=== PATIENT | female | born 1985 | race American Indian/Alaskan Native ===

== ENCOUNTER 2016-09-20 18:50 | Emergency (ER) | payer MEDICAID ==
[2016-09-20 19:01] VITALS: BP 137/91
--- NOTE | 2016-09-20 19:03 | Emergency Department Report ---
Chief Complaint: Headache Stated Complaint: POSSIBLE STROKE Time Seen by Provider: 09/20/16 18:57 - HPI History of Present Illness: PT c/o headache 2-3 months. PT states it became worse yesterday - ROS Review of Systems: + irregular period, iud recently removed + abd pain + cough + wheeze - Exam Vital Signs: Vital Signs 09/20/16 18:57 Temperature 97.6 F Pulse Rate 101 H Respiratory 16 Rate Blood Pressure 137/91 O2 Sat by Pulse 100 Oximetry Physical Exam: PT looks well, non toxic steady gait in triage no focal weakness gcs 15 MSE screening note: Focused history and physical exam performed. Due to findings the following was ordered: labs, xr, ct ED Disposition for MSE Condition: Stable
[2016-09-20 19:30] LABS: Basophils % (Auto) 0.4 % (0.0-1.8); Eosinophils % (Auto) 2.9 % (0.0-4.3); Hematocrit 35.2 % (30.3-42.9); Hemoglobin 11.8 gm/dl (10.1-14.3); Mean Corpuscular HGB Conc 34 % (30-34); Mean Corpuscular Hemoglobin 31 pg (28-32); Mean Corpuscular Volume 91 fl (79-97); Platelet Count 215 K/mm3 (140-440); Red Blood Count 3.88 M/mm3 (3.65-5.03); Red Cell Distribution Width 12.8 % (13.2-15.2); White Blood Count 7.9 K/mm3 (4.5-11.0)
[2016-09-20 19:46] LABS: Alanine Aminotransferase 12 units/L (7-56); Albumin 3.9 g/dL (3.9-5); Albumin/Globulin Ratio 1.5 %; Alkaline Phosphatase 53 units/L (35-129); Anion Gap 16 mmol/L; Blood Urea Nitrogen 8 mg/dL (7-17); Calcium 8.7 mg/dL (8.4-10.2); Carbon Dioxide 26 mmol/L (22-30); Chloride 102.3 mmol/L (98-107); Glucose 102 mg/dL (65-100); Lipase 12 units/L (13-60); Sodium 140 mmol/L (137-145); Total Protein 6.5 g/dL (6.3-8.2)
[2016-09-20 19:46] LABS: Bilirubin,Urine NEG (Negative); Blood,Urine NEG (Negative); Ketones,Urine NEG (Negative); Leukocyte Esterase,Urine NEG (Negative); Mucus,Urine FEW /HPF; Nitrite,Urine NEG (Negative); Protein,Urine <15 mg/dL mg/dL (Negative); Urobilinogen,Urine < 2.0 mg/dL (<2.0)
--- NOTE | 2016-09-24 11:14 | ED Elopement Review ---
ED Pt Elopement review - Results review Lab results: Laboratory Tests 09/20/16 09/20/16 09/20/16 19:07 19:07 19:07 WBC 7.9 RBC 3.88 Hgb 11.8 Hct 35.2 MCV 91 MCH 31 MCHC 34 RDW 12.8 L Plt Count 215 Lymph % (Auto) 48.5 H [place] % (Auto) 7.2 Eos % (Auto) 2.9 Baso % (Auto) 0.4 Lymph # 3.8 [place] # 0.6 Eos # 0.2 Baso # 0.0 Seg Neutrophils % 41.0 Seg Neutrophils # 3.2 Sodium 140 Potassium 4.0 Chloride 102.3 Carbon Dioxide 26 Anion Gap 16 BUN 8 Creatinine 0.5 L Estimated GFR > 60 BUN/Creatinine Ratio 16.00 Glucose 102 H Calcium 8.7 Total Bilirubin 0.40 AST 18 ALT 12 Alkaline Phosphatase 53 Total Protein 6.5 Albumin 3.9 Albumin/Globulin Ratio 1.5 Lipase 12 L HCG, Qual Negative Urine Color Urine Turbidity Urine pH Ur Specific [place] Urine Protein Urine Glucose (UA) Urine Ketones Urine Blood Urine Nitrite Urine Bilirubin Urine Urobilinogen Ur Leukocyte Esterase Urine WBC (Auto) Urine RBC (Auto) U Epithel Cells (Auto) Urine Mucus 09/20/16 19:30 WBC RBC Hgb Hct MCV MCH MCHC RDW Plt Count Lymph % (Auto) [place] % (Auto) Eos % (Auto) Baso % (Auto) Lymph # [place] # Eos # Baso # Seg Neutrophils % Seg Neutrophils # Sodium Potassium Chloride Carbon Dioxide Anion Gap BUN Creatinine Estimated GFR BUN/Creatinine Ratio Glucose Calcium Total Bilirubin AST ALT Alkaline Phosphatase Total Protein Albumin Albumin/Globulin Ratio Lipase HCG, Qual Urine Color Yellow Urine Turbidity Clear Urine pH 5.0 Ur Specific [place] 1.024 Urine Protein <15 mg/dl Urine Glucose (UA) Neg Urine Ketones Neg Urine Blood Neg Urine Nitrite Neg Urine Bilirubin Neg Urine Urobilinogen < 2.0 Ur Leukocyte Esterase Neg Urine WBC (Auto) 3.0 Urine RBC (Auto) 4.0 U Epithel Cells (Auto) 13.0 Urine Mucus Few - Call Back decision Pt Call Back Decision: No action required
== END 2016-09-21 01:30 | disposition left against medical advice (07) ==
LOC: ED 18:50
DX: R51 Headache (principal); Z53.21 Procedure and treatment not carried out due to patient leaving prior to being seen by health care provider
CPT/HCPCS: 36415; 80053; 81001; 83690; 84703; 85025